=== PATIENT | male | born 1945 | race Asian ===

== ENCOUNTER 2019-01-31 08:14 | Day surgery (SDC) | payer OTHER ==
[~2019-01-31] VITALS: Ht 152.4 cm; Wt 69.9 kg
[2019-01-31] MEDS ORDERED: MIDAZOLAM 2 MG/2 ML VIAL ONE (11:28)
[2019-01-31] MEDS ORDERED: fentaNYL 0.05 MG/ML VIAL ONE (11:28)
== END 2019-01-31 12:20 | disposition home or self-care (01) ==
LOC: MTU 08:14 → MOR 08:14
PROVIDERS: ATTEND Internal Medicine Gastroenterology
DX: R63.0 Anorexia (principal); K29.70 Gastritis, unspecified, without bleeding; K44.9 Diaphragmatic hernia without obstruction or gangrene; K22.70 Barrett's esophagus without dysplasia; E11.9 Type 2 diabetes mellitus without complications; I10 Essential (primary) hypertension; Z90.49 Acquired absence of other specified parts of digestive tract; Z79.84 Long term (current) use of oral hypoglycemic drugs; Z79.899 Other long term (current) drug therapy
CPT/HCPCS: 36415; 43239; 86677; J2250; J3010